=== PATIENT | female | born 1940 | race Caucasian/White ===

== ENCOUNTER 2023-02-12 06:21 | Day surgery (SDC) | payer MEDICARE ==
[~2023-02-12] VITALS: Ht 157.5 cm; Wt 87.5 kg
[~2023-02-12 06:21] MED LIST: ALBU2.5V10 INH; BUDE0.5S6 INH; FLUT1BLS8 INH; GLUC1TAB58 PO; MONT10TA97 PO; OMEP1CAP73 PO; PROPARACAINE 0.5% OPHTH SOL 15ML OD ONE
[2023-02-12] MEDS ORDERED: LIDOCAINE 1% SDV 5ML VIAL As Ordered ONE (06:44)
[2023-02-12] MEDS ORDERED: BSS IRR 500ML/OMIDRIA 4ML IRR BAG (OR ONLY) As Ordered ONE (06:45)
[2023-02-12] MEDS ORDERED: TOBRADEX OPHTH OINT 3.5 GM As Ordered ONE (06:45)
[2023-02-12] MEDS ORDERED: MIDAZOLAM INJ 2MG/2ML VIAL As Ordered ONE (06:55)
[2023-02-12] MEDS ORDERED: fentaNYL 100 MCG/2 ML INJECTION As Ordered ONE (06:55)
[2023-02-12] MEDS: PHENYLEPHRINE 2.5% OPHTH SOL 2ML OD SCH ×3 (07:01→07:08)
[2023-02-12] MEDS: TROPICAMIDE 1% OPHTH SOLN 15ML OD SCH ×3 (07:01→07:08)
[2023-02-12] MEDS: OFLOXACIN 0.3 % (OCUFLOX) OPTH SOL 5ML OD SCH ×3 (07:01→07:08)
[2023-02-12] MEDS: CYCLOPENTOLATE 1% OPHTH SOLN 2ML BTL OD SCH ×3 (07:01→07:08)
[2023-02-12 08:45] VITALS: BP 138/65; TEMP 98.2; O2SAT 95
== END 2023-02-12 08:49 | disposition home or self-care (01) ==
LOC: M SDC 06:21
PROVIDERS: ATTEND Ophthalmology
DX: H25.11 Age-related nuclear cataract, right eye (principal); Z88.0 Allergy status to penicillin; Z79.899 Other long term (current) drug therapy
CPT/HCPCS: 66984; J1097; J2250; J3010; V2632

== ENCOUNTER 2023-04-02 06:31 | Day surgery (SDC) | payer MEDICARE ==
[~2023-04-02] VITALS: Ht 157.5 cm; Wt 88.0 kg
[~2023-04-02 06:31] MED LIST changes: +CYCLOPENTOLATE 1% OPHTH SOLN 2ML BTL OS SCH; +OFLOXACIN 0.3 % (OCUFLOX) OPTH SOL 5ML OS SCH; +ONDANSETRON 4MG 2ML VIAL IV PRN; +PHENYLEPHRINE 2.5% OPHTH SOL 2ML OS SCH; -PROPARACAINE 0.5% OPHTH SOL 15ML OD ONE; +PROPARACAINE 0.5% OPHTH SOL 15ML OS ONE; +TROPICAMIDE 1% OPHTH SOLN 15ML OS SCH; +oxyCODONE 5MG TAB PO PRN
[2023-04-02] MEDS ORDERED: LIDOCAINE 1% SDV 5ML VIAL As Ordered ONE ×2 (06:56→08:06)
[2023-04-02] MEDS ORDERED: MIDAZOLAM INJ 2MG/2ML VIAL As Ordered ONE (07:06)
[2023-04-02] MEDS ORDERED: fentaNYL 100 MCG/2 ML INJECTION As Ordered ONE (07:06)
[2023-04-02] MEDS ORDERED: TOBRADEX OPHTH OINT 3.5 GM As Ordered ONE (08:13)
[2023-04-02 08:36] VITALS: BP 161/89; TEMP 97.2; O2SAT 94
== END 2023-04-02 08:53 | disposition home or self-care (01) ==
LOC: M SDC 06:31
PROVIDERS: ATTEND Ophthalmology
DX: H25.11 Age-related nuclear cataract, right eye (principal); K21.9 Gastro-esophageal reflux disease without esophagitis; J45.909 Unspecified asthma, uncomplicated; R06.83 Snoring; Z88.0 Allergy status to penicillin; Z91.048 Other nonmedicinal substance allergy status; Z79.899 Other long term (current) drug therapy
CPT/HCPCS: 66984; J2250; J3010; V2632